=== PATIENT | male | born 1955 ===

== ENCOUNTER 2019-11-04 06:42 | Day surgery (SDC) | payer MEDICARE, OTHER ==
[~2019-11-04] VITALS: Wt 86.3 kg
--- NOTE | 2019-11-04 11:37 | NUR ---
11/04/19 1137 Sophie Solis S IV SITE CHARTED IN RIGHT HAND BUT WAS IN RIGHT WRIST. COULDN'T CHANGE SINCE PT. WAS DISCHARGED.
== END 2019-11-04 09:35 | disposition home or self-care (01) ==
LOC: ORSCSDS 06:42
PROVIDERS: Internal Medicine Gastroenterology
PROC: 0DBK8ZX Excision of Ascending Colon, Via Natural or Artificial Opening Endoscopic, Diagnostic (ICD-10-PCS; principal; 2019-11-04 08:00)
PROC: 0DBP8ZX Excision of Rectum, Via Natural or Artificial Opening Endoscopic, Diagnostic (ICD-10-PCS; principal; 2019-11-04 08:00)
PROC: 0DBM8ZX Excision of Descending Colon, Via Natural or Artificial Opening Endoscopic, Diagnostic (ICD-10-PCS; principal; 2019-11-04 08:00)
PROC: 0DBN8ZX Excision of Sigmoid Colon, Via Natural or Artificial Opening Endoscopic, Diagnostic (ICD-10-PCS; principal; 2019-11-04 08:00)
PROC: 0DBH8ZX Excision of Cecum, Via Natural or Artificial Opening Endoscopic, Diagnostic (ICD-10-PCS; principal; 2019-11-04 08:00)
DX: R19.5 Other fecal abnormalities (principal); D12.8 Benign neoplasm of rectum; K63.5 Polyp of colon; D12.2 Benign neoplasm of ascending colon; D12.0 Benign neoplasm of cecum; D12.5 Benign neoplasm of sigmoid colon; Z86.010 Personal history of colon polyps; K57.30 Diverticulosis of large intestine without perforation or abscess without bleeding; D86.0 Sarcoidosis of lung
CPT/HCPCS: 88305; J0330; J0461; J2405; J2704; J7120